=== PATIENT | male | born 1990 | race Two or more races ===

== ENCOUNTER 2017-04-17 10:04 | Emergency (ER) | payer OTHER ==
[2017-04-17 10:09] VITALS: BP 112/82; PULSE 84; RESP 16; TEMP 98.6; O2SAT 97
--- NOTE | 2017-04-17 10:15 | EDPHY ---
H & P Stated Complaint: hoarse voice dry cough x 2 weeks Time Seen by Provider: 04/17/17 10:15 HPI/ROS: CHIEF COMPLAINT: Hoarseness, sore throat HISTORY OF PRESENT ILLNESS: The patient presents to the ED with a one-week history of hoarseness. He has had an intermittent sore throat for the past 2 weeks. He denies significant fever, cough, congestion. The patient denies significant past medical history. The patient takes no regular medications. The patient denies complaints of acute abdominal pain, headache, neck stiffness or any focal neurologic symptoms. REVIEW OF SYSTEMS: A comprehensive 10 point review of systems is otherwise negative aside from elements mentioned in the history of present illness. Source: Patient - Personal History Current Tetanus/Diphtheria Vaccine: Yes - Medical/Surgical History Hx Asthma: No Hx Chronic Respiratory Disease: No Hx Diabetes: No Hx Cardiac Disease: No Hx Renal Disease: No Hx Cirrhosis: No Hx Alcoholism: No Hx HIV/AIDS: No Hx Splenectomy or Spleen Trauma: No Other PMH: denies - Social History Smoking Status: Never smoked - Physical Exam Exam: General Appearance: Alert, no distress Eyes: Pupils equal and round no pallor or injection ENT, Mouth: Mild posterior pharyngeal erythema with slight edematous soft tissue swelling, no peritonsillar abscess or mass Respiratory: There are no retractions, lungs are clear to auscultation Cardiovascular: Regular rate and rhythm Gastrointestinal: Abdomen is soft and nontender, no masses, bowel sounds normal Neurological: A&O, normal motor function, normal sensory exam, normal cranial nerves Skin: Warm and dry, no rashes Musculoskeletal: Neck is supple nontender specifically without evidence of meningitis Extremities: symmetrical, full range of motion Constitutional: Initial Vital Signs Temperature (C) 37 C 04/17/17 10:05 Heart Rate 84 04/17/17 10:05 Respiratory Rate 16 04/17/17 10:05 Blood Pressure 112/82 H 04/17/17 10:05 O2 Sat (%) 97 04/17/17 10:05 O2 Delivery Mode Room Air Allergies/Adverse Reactions: No Known Allergies Allergy (Unverified 04/17/17 10:05) Home Medications: Medication Instructions Recorded NK [No Known Home Meds] 04/17/17 Medical Decision Making ED Course/Re-evaluation: The patient presents to the ED for evaluation of sore throat and laryngitis. The patient is noted to have generalized mild erythema on exam with slight posterior pharyngeal edema. The patient has no clinical evidence of a peritonsillar abscess, retropharyngeal abscess or meningitis. Rapid strep test is negative. The patient will be started on Decadron for the next 3 days. I have asked him to follow up with our ENT physician for any unimproved symptoms. Differential Diagnosis: Defect no CIS considered includes pharyngitis, laryngitis, peritonsillar abscess , retropharyngeal abscess - Data Points Laboratory Results: 04/17/17 04/17/17 Unknown Unknown Group A Strep Screen NEGATIVE (NEGATIVE) Group A Strep DNA Pending Departure - Departure Disposition: Home, Routine, Self-Care Clinical Impression: Laryngitis Condition: Good Instructions: Laryngitis (ED) Additional Instructions: 1. Please take steroids as directed for next 3 days. 2. Please follow up with the Ear Nose Throat physician you have been referred to for any unimproved symptoms. 3. Your strep test is negative. 4. Please return to the ED for markedly worsening symptoms, difficulty swallowing, neck stiffness, high fever or other concerns. Referrals: Ole Greene MD [Medical Doctor] - As per Instructions
== END 2017-04-17 10:56 | disposition home or self-care (01) ==
DX: J04.0 Acute laryngitis (principal)

== ENCOUNTER 2017-04-20 12:20 | Emergency (ER) | payer OTHER ==
[2017-04-20 12:27] VITALS: BP 105/59; PULSE 73; RESP 16; TEMP 98.6; O2SAT 95
--- NOTE | 2017-04-20 14:29 | EDPHY ---
H & P Smoking Status: Never smoked Time Seen by Provider: 04/20/17 14:05 HPI/ROS: CHIEF COMPLAINT: Laryngitis HISTORY OF PRESENT ILLNESS: 27-year-old male presents to the emergency department by private vehicle complaining of persisting laryngitis. The patient states 3 weeks ago he developed a hoarse voice and then developed URI symptoms. His URI symptoms improved, however his laryngitis has persisted. He was seen in the emergency department 3 days ago and took 3 days of Decadron daily. He feels that he is not any better if not traps a bit worse. He has had intermittent dysphagia. He has had intermittent feelings of shortness of breath. No fevers or chills. No rash. No headache. No reported trauma. No night sweats. The patient is an avid runner and he knows that this causes him to cough and feel short of breath. He did have a sore throat, however this is now resolved. REVIEW OF SYSTEMS: Constitutional: No fever, no chills. Eyes: No double or blurry vision. ENT: No sore throat. Respiratory: No cough, no shortness of breath. Cardiac: No chest pain. Gastrointestinal: No abdominal pain, vomiting or diarrhea. Genitourinary: No dysuria. Musculoskeletal: No neck or back pain. Skin: No rashes. Neurological: No headache. (ManasaGissell westbrook) Past Medical/Surgical History: Negative (DulceGissell M) Social History: Single and lives in [place] (Gissell Cardona) Physical Exam: General Appearance: Alert, no distress. Eyes: Pupils equal and round. Extraocular motions are all intact. ENT: Mouth: Mucous membranes moist. Hoarse voice noted. No respiratory distress. No posterior pharyngeal injection or swelling noted. Respiratory: No wheezing, rhonchi, or rales, lungs are clear to auscultation. Cardiovascular: Regular rate and rhythm. Gastrointestinal: Abdomen is soft and nontender, no masses, no rebound or guarding, bowel sounds normal. Neurological: Alert and oriented x 3, cranial nerves II through XII grossly intact Skin: Warm and dry, no rashes. Musculoskeletal: Nontender to palpate along the cervical, thoracic or lumbar spine. Neck is supple. Extremities: Full range of motion and no peripheral edema. Psychiatric: Patient is oriented X 3, there is no agitation. (Gissell Cardona) Constitutional: Initial Vital Signs Temperature (C) 37 C 04/20/17 12:25 Heart Rate 73 04/20/17 12:25 Respiratory Rate 16 04/20/17 12:25 Blood Pressure 105/59 L 04/20/17 12:25 O2 Sat (%) 95 04/20/17 12:25 Allergies/Adverse Reactions: No Known Allergies Allergy (Unverified 04/20/17 12:28) Medical Decision Making ED Course/Re-evaluation: 27-year-old male presents with persisting laryngitis. I spoke with the ENT type disk quality control supervisor to inquire if he thought imaging studies were indicated or just having a scope. Dr. Vega was on-call for ENT and he did not recommend any imaging studies in the emergency department. He will see him in his clinic now for a scope. This was explained to the patient who verbalized understanding and agreed and he was discharged to go to his office directly. (Gissell Cardona) The patient was evaluated and managed by the physician assistant professor of communication. I have reviewed this chart and I agree with the findings and plan of care as documented , as indicated by my signature. I am the secondary supervising physician. ( Meghana Blackwell) Differential Diagnosis: Including but not limited to viral upper respiratory infection, vocal cord dysfunction, lymphoma (Gissell Cardona) Departure - Departure Disposition: Home, Routine, Self-Care Clinical Impression: Laryngitis Condition: Good Instructions: Laryngitis (ED) Additional Instructions: Go to Dr. Vega's office now. They are expecting you and will likely do a scope in the office today. Referrals: Stiven Vega MD [Medical Doctor] - As per Instructions (Go directly to the office now)
== END 2017-04-20 14:34 | disposition home or self-care (01) ==
DX: J04.0 Acute laryngitis (principal)